=== PATIENT | male | born 1975 | race Caucasian/White ===

== ENCOUNTER → 2023-01-08 | Outpatient (CLI) | payer OTHER ==
--- NOTE | 2023-01-08 15:05 | CONS ---
CONSULTATION REASON FOR CONSULTATION: Sleep apnea. HISTORY OF PRESENT ILLNESS: A 47-year-old male patient, morbidly obese, gaining weight, complaining of chronic sleepiness and fatigue. 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 He has gained weight over the years. He has snoring, chronic fatigue, and sleepiness. He goes to bed between 11 p.m. and 2 a.m. in the morning and he gets out of bed around 9 a.m. in the morning. He is edentulous. He snores and he wakes up with a dry mouth. He is averaging around 8 hours of sleep. He takes a few minutes to fall asleep and he does not wake up frequently in the middle of the night. He occasional arouses because of urination. No naps during the day. No history of any motor vehicle accident because of feeling drowsy or sleepy. He sleeps on his side. He does not watch TV in the bedroom. No vivid dreams. No sleep paralysis. No hallucinations. PAST MEDICAL HISTORY: Hyperlipidemia and obesity. PAST SURGICAL HISTORY: Negative. DRUG ALLERGIES: Not known. MEDICATIONS: Includes medication for hyperlipidemia. SOCIAL HISTORY: Smokes between 1-1/2 to 2 packs of cigarettes a day. Cut down on his Mountain Dew drinking. No history of alcoholism. Drinks 1 to 2 pots of coffee on a daily basis to keep himself stimulated. No substance abuse. FAMILY HISTORY: Liver cancer in his daughter and she underwent liver transplantation. Hypertension in his father, hyperlipidemia in both parents. REVIEW OF SYSTEMS: Fourteen-point review of system was done and essentially negative other than things mentioned above in the history of present illness. Of significance is the absence of any chest pain, shortness of breath, or heartburn overnight. No seizure activity overnight. No sleepwalking or sleep talking. No palpitations. No anxiety or depression. Denies waking up choking or gasping for air. No issues with concentration and memory. No history of any motor vehicle accidents. PHYSICAL EXAMINATION: VITAL SIGNS: BP is 132/87, pulse 65, respirations 16, temperature 97.8, saturation 94% on room air. Neck size is 19-1/4 of an inch. Rochester score is at 6. BMI is 42.5. Pulse ox 94% on room-air oxygen. GENERAL APPEARANCE: Obese, calm, comfortable. HEAD: Atraumatic, normocephalic. NECK: Supple. There is no JVD. No goiter or neck masses. ORAL CAVITY: Showing no significant abnormalities. The patient is edentulous. The patient carries a Mallampati class 4. LUNGS: Diminished, otherwise clear. HEART: Sounds are regular rate and rhythm. Normal S1, S2. No S3 or S4. No murmurs. ABDOMEN: Soft, nontender. No organomegaly. No direct tenderness. No rebound tenderness or guarding. EXTREMITIES: No edema. No cyanosis or clubbing. NEUROLOGIC: Awake and alert. There is no focal neurological deficit. PSYCHIATRIC: Negative for anxiety or depression. SKIN: Negative for wounds, ulcerations, or lesions. ASSESSMENT: 1. Chronic hypersomnia, Rochester score of 6. Consider possibility of obstructive sleep apnea. Clinical suspicion is high. 2. Loud snoring. 3. Obesity with a body mass index of 42.5 with crowding of posterior pharynx and a Mallampati class 4. The patient is edentulous. 4. Hyperlipidemia. 5. History of smoking. PLAN: Encourage weight loss. Optimize sleep hygiene measures. Maintain regular sleep schedule. Avoid naps during the day. Proceed with a screening polysomnography. MMODL / IJN: [id number] /
== END ==
LOC: 3 N SLEEP 13:00
PROVIDERS: ATTEND Internal Medicine Critical Care Medicine
DX: G47.10 Hypersomnia, unspecified (principal); R06.83 Snoring; E66.9 Obesity, unspecified; E78.5 Hyperlipidemia, unspecified; F17.200 Nicotine dependence, unspecified, uncomplicated; Z68.41 Body mass index [BMI] 40.0-44.9, adult
CPT/HCPCS: 99202

== ENCOUNTER 2023-02-17 19:34 | Outpatient (CLI) | payer OTHER ==
--- NOTE | 2023-02-22 19:08 | SLS ---
SLEEP STUDY HISTORY OF PRESENT ILLNESS: 47-year-old male patient, morbidly obese, gained weight over the year and is complaining of increased fatigue and sleepiness. 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 He has hyperlipidemia as comorbid condition. Due to concern of sleep apnea, a screening polysomnography was ordered. PERTINENT PHYSICAL FINDINGS: Height is 5 feet 11 inches, weight is 311 pounds and a body mass index of 43.4. TECHNICAL DESCRIPTION: The sleep evaluation of the patient consisted of clinical polysomnography, nocturnal respiratory battery, left and right anterior tibialis surface electromyography. The standard montage for the clinical polysomnography included the EEG, EOG, EMG, and EKG. Respiratory battery included measurements of nasal/buccal airflow, thoracic, and/or abdominal effort and intercostal surface EMG. Nocturnal oxyhemoglobin saturations were obtained by finger oximetry. Digital video and audio monitoring were done throughout the entire night to check or parasomnias. STUDY ARCHITECTURE: Total time in bed was 416 minutes. Total sleep time was 360.5 minutes. The sleep efficiency was 86.7%. Latency to sleep onset was 18.5 minutes. Latency to REM sleep was 118.0 minutes. The sleep architecture was characterized by 13.9% stage I, 70.7% stage II, 2.1% stage III, and 13.3% REM sleep. OXYGENATION ANALYSIS: The total arousal index was 9.5. Wake after sleep time was 33 minutes. RESULTS: Respiratory analysis showed a total of 61 obstructive events of which 0 was obstructive apnea, 0 was mixed apnea, 61 were obstructive hypopneas and the resulting AHI was 9.7. No central apneas were noted. OXYGENATION ANALYSIS: The patient had mild nocturnal oxygen desaturation. The patient spent approximately 11 minutes of sleep time at a pulse ox of 89% and below. The lowest pulse ox was 76%. Minimum pulse ox during REM sleep was 79%. SLEEP CONTINUITY SUMMARY: The patient had a total of 57 arousals with an arousal index of 11.5. Respiratory arousal index was 1.3. Periodic limb movements were none. CARDIAC SUMMARY: Average heart rate was 60, minimum 55, maximum 65. Rhythm was sinus. ASSESSMENT: 1. Mild obstructive sleep apnea with an AHI of 9.7. The patient's symptoms of chronic hypersomnia are out of proportion to the severity of sleep apnea. 2. Morbid obesity, BMI of 43.4. 3. Hyperlipidemia. 4. Chronic hypersomnia, Allen[place] score of 6. PLAN: We will offer this patient CPAP therapy. The patient is morbidly obese and is quite symptomatic. He has mild disease with an AHI of 9.7 with mild nocturnal oxygen desaturation. Nevertheless, there may be some benefit from CPAP therapy. I am going to ask the patient to come into the sleep center to undergo CPAP titration. We will encourage weight loss, optimize sleep hygiene measures. I will make further recommendations based on his progress and response to CPAP therapy. I am inclined in treating this patient due to his symptomatic nature despite the mild nature of his underlying sleep apnea. MMODL / IJN: [id number] /
== END 2023-02-18 06:00 | disposition home or self-care (01) ==
LOC: 3 N SLEEP 19:34
PROVIDERS: ATTEND Internal Medicine Critical Care Medicine
DX: G47.33 Obstructive sleep apnea (adult) (pediatric) (principal); G47.10 Hypersomnia, unspecified; E66.01 Morbid (severe) obesity due to excess calories; E78.5 Hyperlipidemia, unspecified; Z68.41 Body mass index [BMI] 40.0-44.9, adult
CPT/HCPCS: 95810

== ENCOUNTER 2023-04-21 19:37 | Outpatient (CLI) | payer OTHER ==
--- NOTE | 2023-04-23 23:36 | SLS ---
SLEEP STUDY This is a CPAP titration report. HISTORY OF PRESENT ILLNESS: This patient is 47, diagnosed having obstructive sleep apnea with an AHI of 9.7. The patient has chronic hypersomnia and sleepiness along with obesity. He was asked to come in for a CPAP titration. PERTINENT PHYSICAL FINDINGS: Height is 5 feet 11 inches, weight is 311, and body mass index is 43.4. TECHNICAL DESCRIPTION: The sleep evaluation of the patient consisted of clinical polysomnography, nocturnal respiratory battery, left and right anterior tibialis surface electromyography. The standard montage for the clinical polysomnography included the EEG, EOG, EMG, and EKG. Respiratory battery included measurements of nasal/buccal airflow, thoracic, and/or abdominal effort and intercostal surface EMG. Nocturnal oxyhemoglobin saturations were obtained by finger oximetry. Digital video and audio monitoring were done throughout the entire night to check or parasomnias. Step-montejo titration with positive airway pressure was utilized during the study to control the respiratory events. SLEEP ARCHITECTURE: Total time in bed was 410 minutes. Total sleep time was 369.5 minutes and overall sleep efficiency was 90%. Latency to sleep onset was 10 minutes. Latency to REM sleep was 101.5 minutes, and the sleep architecture was characterized by 6.6% stage I, 75.5% stage II, 0% stage III, and 17.9% REM sleep. The wake after sleep onset time was 30.5 minutes. The total arousal index was 12.7, and the respiratory arousal index was 1.1. CPAP TITRATION SUMMARY: The patient was started on CPAP therapy initially at a pressure of 4 cm of water and the pressure was gradually increased by increments of 1 cm to reach a maximum CPAP pressure of 11 cm of water. This was a successful titration. The patient encountered some oxygen desaturations during REM sleep. Nevertheless, the pressure of 11 cm of water. His oxygenation was well maintained above 90% and the obstructive respiratory events were essentially eliminated. All sleep stages were encountered and the patient was studied in the supine and non- supine body position. Oxygenation improved while on CPAP therapy without any desaturations at a target CPAP pressure of 11 cm of water. CARDIAC SUMMARY: Average heart rate was 65, minimum heart rate 61, maximum heart rate was 70. Rhythm was sinus. PERIODIC LIMB MOVEMENT ACTIVITY: A total of 17 periodic limb movement activity with arousals with an index of 2.8. ASSESSMENT: 1. Obstructive sleep apnea, mild in severity with an AHI of 9.7. The patient underwent a successful CPAP titration. 2. Obesity with a BMI of 43.4. 3. Chronic hypersomnia. PLAN: Initiate CPAP therapy at a pressure of 11 cm of water with a C-Flex of 3. The patient will be provided an AirFit F20 full-face mask, medium size. The patient will be encouraged to lose weight. Optimize sleep hygiene measures and see me back in followup in 30 to 90 days to assess clinical response and compliancy. [id number] / IJN: [id number] /
== END 2023-04-22 06:00 | disposition home or self-care (01) ==
LOC: 3 N SLEEP 19:37
PROVIDERS: ATTEND Internal Medicine Critical Care Medicine
DX: G47.33 Obstructive sleep apnea (adult) (pediatric) (principal); G47.10 Hypersomnia, unspecified; G47.61 Periodic limb movement disorder; G47.36 Sleep related hypoventilation in conditions classified elsewhere; G47.52 REM sleep behavior disorder; E66.9 Obesity, unspecified; Z68.41 Body mass index [BMI] 40.0-44.9, adult
CPT/HCPCS: 95811